=== PATIENT | female | born 1965 | race Caucasian/White ===

== ENCOUNTER 2017-07-07 14:21 | Emergency (ER) | payer MEDICARE, MEDICAID ==
[~2017-07-07] VITALS: Ht 160 cm; Wt 106.0 kg
[2017-07-07] MEDS ORDERED: CYCL-1 PO (16:19)
[2017-07-07] MEDS ORDERED: IBUP-1984 PO (16:19)
[2017-07-07 16:33] VITALS: BP 117/78
== END 2017-07-07 16:34 | disposition home or self-care (01) ==
LOC: ER 14:22
DX: S16.1XXA Strain of muscle, fascia and tendon at neck level, initial encounter (principal); G44.209 Tension-type headache, unspecified, not intractable; M62.830 Muscle spasm of back; I10 Essential (primary) hypertension; F12.10 Cannabis abuse, uncomplicated; Z88.5 Allergy status to narcotic agent; Z79.899 Other long term (current) drug therapy; X58.XXXA Exposure to other specified factors, initial encounter; Y93.I9 Activity, other involving external motion; Y92.89 Other specified places as the place of occurrence of the external cause; Y99.8 Other external cause status
CPT/HCPCS: 99283; A6258; A6449; L0172

== ENCOUNTER → 2020-10-16 | Day surgery (SDC) | payer MEDICARE, MEDICAID ==
[2020-10-10 15:13] LABS: BASOPHILS % (AUTO) 0.5 % (0-1); EOSINOPHILS # (AUTO) 0.1 X10'3 (0-0.9); EOSINOPHILS % (AUTO) 1.2 % (0-6); LYMPHOCYTES # (AUTO) 2.8 X10'3 (1.1-4.8); LYMPHOCYTES % (AUTO) 29.5 % (21-51); MEAN CORPUSCULAR HEMOGLOBIN 29.2 PG (27.0-31.0); MEAN CORPUSCULAR VOLUME 88.4 FL (78-98); MEAN PLATELET VOLUME 7.8 FL (7.4-10.4); MONOCYTES # (AUTO) 0.5 X10'3 (0-0.9); MONOCYTES % (AUTO) 5.5 % (2-12); NEUTROPHILS # (AUTO) 6.1 X10'3 (1.8-7.7); NEUTROPHILS % (AUTO) 63.3 % (42-75); PRE OP HEMATOCRIT 42.5 % (35.0-45.0); PRE OP PLATELET COUNT 335 X10'3 (140-440); RED CELL DISTRIBUTION WIDTH 14.7 % (11.5-14.5)
[2020-10-10 15:23] LABS: ALBUMIN 3.5 G/DL (3.4-5.0); ALBUMIN/GLOBULIN RATIO 0.8 (1.1-1.5); ALKALINE PHOSPHATASE 90 IU/L (46-116); BLOOD UREA NITROGEN 13 MG/DL (7-18); BUN/CREATININE RATIO 17.1 (6.6-38.0); CHLORIDE 104 MMOL/L (99-107); CREATININE 0.76 MG/DL (0.40-0.90); PRE OP ALT 19 U/L (30-65); PRE OP ANION GAP 8 (8-16); PRE OP AST 15 U/L (10-37); PRE OP BILIRUB, TOTAL 0.3 MG/DL (0.0-1.0); PRE OP GLUCOSE 91 MG/DL (70-104); PRE OP SODIUM 143 MMOL/L (135-145); TOTAL CARBON DIOXIDE 31.3 MMOL/L (24-32); eGFR 79 ML/MIN
[2020-10-10 15:27] LABS: PRE OP POTASSIUM 3.2 MMOL/L (3.4-5.1)
[~2020-10-16] VITALS: Ht 160 cm; Wt 113.4 kg
[2020-10-16] VITALS (13 sets, daily range): BP systolic 88–144; BP diastolic 53–96
[~2020-10-16] MED LIST: ACET-2389 PO; BUPIVAcaine/PF 2.5 mg/ml (0.25%) 30ml vial ONE; CETI10TA14 PO; CHLO25TA10 PO; GABA600T PO; GUAI600T45 PO; INDOCYANINE GREEN 25 MG/10 ML VIAL IV ONE; LIDOcaine 1% 30ml preserv. free vial ONE; LIDOcaine 2% (20mg/ml) 5ml vial ONE; ZOLP5TAB8 PO; albuterol 2.5 MG/3 ML nebule NEB ONE; ceFAZolin 1000mg inj ONE; cefazolin/dext.iso 2gm/100ml IV ONE; desflurane 240ml liquid inh. IH ONE; dexamethasone sod phosphate 4mg/ml inj. ONE; dexmedetomidin/NS 400mcg/100mL bag IV ONE; ePHEDrine 50MG/ML INJ. ONE; famotidine 20mg tablet PO ONE; fentaNYL/PF 50MCG/1 ML 2ML syringe IV PRN; fentaNYL/PF 50MCG/1 ML 2ML syringe ONE; glycopyrrolate 0.2mg/ml inj ONE; hydrALAZINE 20mg/ml inj. IV PRN; labetalol 20mg/4ml (5mg/ml) syringe IV PRN; morphine 2 MG/ML inj. syringe IV PRN; morphine 4 MG/ML inj SYRINge IV PRN; ondansetron/PF 4mg/2ml inj IV PRN; ondansetron/PF 4mg/2ml inj ONE; oxyCODONE/APAP 5-325mg tablet PO PRN; propofol inj 20 ML IV ONE; ringers solution, lacted 1,000 ML IV SCH; rocuronium 10mg/ml inj IV ONE; sevoflurane 250ml liquid IH ONE
[2020-10-16 10:00] LABS: ISTAT CREATININE 0.7 mg/dL (0.6-1.1); ISTAT HGB 15.3 g/dl (12.0-16.0); ISTAT IONIZED CALCIUM 1.15 mmol/L (1.03-1.32); ISTAT K 3.4 mmol/L (3.5-5.1); POC BUN/CREATININE RATIO 15.7 (6.6-38.0)
--- NOTE | 2020-10-16 11:51 | NUR ---
Received from OR via , accompanied by Anesthesiologist DR ANGELO and report given by Anesthesiolgist. PT PRESENTS WITH PIV 20G RIGHT HAND. VSS. Addendum: 10/16/20 at 1157 by Lizbeth Enriquez RN, RN Amended: Links added.
[2020-10-16] MEDS: fentaNYL/PF 50MCG/1 ML 2ML syringe IV PRN ×2 (12:10→12:18)
--- NOTE | 2020-10-16 13:31 | NUR ---
ALL DISCHARGE CRITERIA HAS BEEN MET. VSS, PAIN AT A TOLERABLE LEVEL, VOIDING AND ABLE TO SAFELY AMBULATE AND TRANSFER SELF. IV TAKEN OUT WITHOUT ANY COMPLICATIONS. ALL DISCHARGE INSTRUCTIONS COVERED WITH PATIENT AND ALL QUESTIONS ANSWERED. PATIENT TAKEN OUT VIA WHEELCHAIR TO PERSONAL VEHICLE WHERE FAMILY/FRIEND DROVE PATIENT HOME. PT IS MAD THAT WE ARE NOT KEEPING HER HERE IN THE HOSPITAL FOR OBSERVATIONS. DR JARRELL EXPPLAINED THAT WE HAVE NO REASON FOR KEEPING HER HERE AT THIS TIME. Addendum: 10/16/20 at 1355 by Lizbeth Enriquez RN, RN Amended: Links added.
--- NOTE | 2020-10-16 13:42 | NUR ---
PT IS BEING VERD DIFFICILT AND ANGRY AND TO WHY WE ARE SENDING HER HOME. DR JARRELL AT BEDSIDE TLAKING WITH PT AND EXPLAINING THAT THERE IS NO REASON TO KEEP PT IN THE NOSPITAL AT THIS TIME. Addendum: 10/16/20 at 1355 by Lizbeth Enriquez RN, RN Amended: Links added.
== END | disposition home or self-care (01) ==
LOC: PAS 08:27
PROVIDERS: ATTEND Surgery
DX: K80.10 Calculus of gallbladder with chronic cholecystitis without obstruction (principal); Z20.822 Contact with and (suspected) exposure to COVID-19; F31.9 Bipolar disorder, unspecified; F41.9 Anxiety disorder, unspecified; I10 Essential (primary) hypertension; G47.30 Sleep apnea, unspecified; E66.01 Morbid (severe) obesity due to excess calories; Z68.42 Body mass index [BMI] 45.0-49.9, adult; F43.10 Post-traumatic stress disorder, unspecified; G89.29 Other chronic pain; F12.10 Cannabis abuse, uncomplicated; Z88.8 Allergy status to other drugs, medicaments and biological substances; Z88.5 Allergy status to narcotic agent; Z91.09 Other allergy status, other than to drugs and biological substances; Z90.49 Acquired absence of other specified parts of digestive tract; Z98.890 Other specified postprocedural states; Z79.899 Other long term (current) drug therapy
CPT/HCPCS: 36415; 47563; 71046; 80047; 80053; 82948; 85025; 93005; J0690; J1100; J2001; J2405; J2704; J3010; J3490; J7120; U0003; U0005; A4215; A4618; A7000

== ENCOUNTER 2022-05-09 10:54 | Day surgery (SDC) | payer MEDICARE, MEDICAID ==
[~2022-05-09] VITALS: Ht 160 cm; Wt 114.2 kg
[~2022-05-09 10:54] MED LIST changes: -BUPIVAcaine/PF 2.5 mg/ml (0.25%) 30ml vial ONE; -INDOCYANINE GREEN 25 MG/10 ML VIAL IV ONE; -LIDOcaine 1% 30ml preserv. free vial ONE; -LIDOcaine 2% (20mg/ml) 5ml vial ONE; -albuterol 2.5 MG/3 ML nebule NEB ONE; -ceFAZolin 1000mg inj ONE; -cefazolin/dext.iso 2gm/100ml IV ONE; -desflurane 240ml liquid inh. IH ONE; -dexamethasone sod phosphate 4mg/ml inj. ONE; -dexmedetomidin/NS 400mcg/100mL bag IV ONE; -ePHEDrine 50MG/ML INJ. ONE; -famotidine 20mg tablet PO ONE; -fentaNYL/PF 50MCG/1 ML 2ML syringe IV PRN; -fentaNYL/PF 50MCG/1 ML 2ML syringe ONE; -glycopyrrolate 0.2mg/ml inj ONE; -hydrALAZINE 20mg/ml inj. IV PRN; -labetalol 20mg/4ml (5mg/ml) syringe IV PRN; -morphine 2 MG/ML inj. syringe IV PRN; -morphine 4 MG/ML inj SYRINge IV PRN; -ondansetron/PF 4mg/2ml inj IV PRN; -ondansetron/PF 4mg/2ml inj ONE; -oxyCODONE/APAP 5-325mg tablet PO PRN; -propofol inj 20 ML IV ONE; -ringers solution, lacted 1,000 ML IV SCH; -rocuronium 10mg/ml inj IV ONE; -sevoflurane 250ml liquid IH ONE
[2022-05-09] MEDS ORDERED: normal saline 1000ml 1,000 ML IV PRN (11:15)
[2022-05-09 11:28] VITALS: BP 139/81
[2022-05-09] MEDS ORDERED: normal saline 1000ml 1,000 ML IV SCH (11:35)
[2022-05-09] MEDS ORDERED: LIDOcaine 1% 30ml preserv. free vial SQ STA (11:37)
[2022-05-09] MEDS ORDERED: DICL25TA10 PO (11:43)
[2022-05-09] MEDS ORDERED: FLUT16SP2 BOTHNARES (11:43)
[2022-05-09] MEDS ORDERED: GABA600T13 PO (11:43)
[2022-05-09] MEDS ORDERED: IBUP-2697 PO (11:43)
[2022-05-09 11:52] VITALS: BP 136/105
[2022-05-09 12:00] VITALS: BP 146/100
[2022-05-09 12:15] VITALS: BP 137/101
[2022-05-09 12:45] VITALS: BP 136/105
== END 2022-05-09 13:00 | disposition home or self-care (01) ==
LOC: SSTAY O 10:54
PROVIDERS: ATTEND Radiology Diagnostic Radiology
DX: R59.0 Localized enlarged lymph nodes (principal); C83.31 Diffuse large B-cell lymphoma, lymph nodes of head, face, and neck; F32.9 Major depressive disorder, single episode, unspecified; J45.909 Unspecified asthma, uncomplicated; I10 Essential (primary) hypertension; Z88.5 Allergy status to narcotic agent; Z88.8 Allergy status to other drugs, medicaments and biological substances; Z91.09 Other allergy status, other than to drugs and biological substances; Z79.899 Other long term (current) drug therapy
CPT/HCPCS: 10005; 38505; 76942; 88173; 88184; 88185; 88305; 88341; 88342; 88360; J7030

== ENCOUNTER → 2023-10-12 | Outpatient (CLI) | payer MEDICARE, MEDICAID ==
[~2023-10-12] MED LIST changes: -CETI10TA14 PO; +DICL25TA10 PO; +FLUT16SP2 BOTHNARES; -GABA600T PO; +GABA600T13 PO; -GUAI600T45 PO; +IBUP-2697 PO
== END | disposition home or self-care (01) ==
LOC: RAD 11:33
PROVIDERS: ATTEND Student in an Organized Health Care Education/Training Program
DX: M48.07 Spinal stenosis, lumbosacral region (principal); M43.16 Spondylolisthesis, lumbar region; M47.812 Spondylosis without myelopathy or radiculopathy, cervical region; M48.02 Spinal stenosis, cervical region; R19.5 Other fecal abnormalities; R20.0 Anesthesia of skin
CPT/HCPCS: 72040; 72100

== ENCOUNTER 2024-03-03 10:49 | Emergency (ER) | payer MEDICARE, MEDICAID ==
[~2024-03-03] VITALS: Ht 157.5 cm; Wt 115.4 kg
[~2024-03-03 10:49] MED LIST changes: +GABA-1405 PO; -GABA600T13 PO
[2024-03-03] MEDS ORDERED: iohexol 350MG/ML 100ml bottle IV ONE ×2 (10:55→11:05)
[2024-03-03 11:07] LABS: BASOPHILS # (AUTO) 0.1 X10'3 (0-0.2); BASOPHILS % (AUTO) 0.6 % (0-1); EOSINOPHILS # (AUTO) 0.1 X10'3 (0-0.9); EOSINOPHILS % (AUTO) 1.4 % (0-6); HEMATOCRIT 43.3 % (35.0-45.0); HEMOGLOBIN 14.3 g/dl (12.0-16.0); LYMPHOCYTES # (AUTO) 2.5 X10'3 (1.1-4.8); LYMPHOCYTES % (AUTO) 30.8 % (21-51); MEAN CORPUSCULAR HEMOGLOBIN 29.6 PG (27.0-31.0); MEAN CORPUSCULAR HGB CONC 33.1 g/dL (33.0-36.5); MEAN CORPUSCULAR VOLUME 89.6 FL (78-98); MEAN PLATELET VOLUME 7.6 FL (7.4-10.4); MONOCYTES # (AUTO) 0.6 X10'3 (0-0.9); MONOCYTES % (AUTO) 6.9 % (2-12); NEUTROPHILS % (AUTO) 60.3 % (42-75); PLATELET COUNT 307 X10'3 (140-440); RED BLOOD COUNT 4.83 X10'6 (4.20-5.60); RED CELL DISTRIBUTION WIDTH 15.2 % (11.5-14.5); WHITE BLOOD COUNT 8.3 X10'3 (4.5-11.0)
[2024-03-03 11:16] LABS: APTT 26 SECONDS (22-32); PROTHROMBIN TIME 10.9 SECONDS (9.0-12.0)
[2024-03-03 11:21] LABS: ALBUMIN 3.7 G/DL (3.4-5.0); ANION GAP 10 (8-16); BLOOD UREA NITROGEN 9 MG/DL (7-18); CALCIUM 8.9 MG/DL (8.5-10.1); CHLORIDE 104 MMOL/L (99-107); CREATININE 0.75 MG/DL (0.40-0.90); GLUCOSE 113 MG/DL (70-104); POTASSIUM 3.6 MMOL/L (3.5-5.1); SODIUM 140 MMOL/L (135-145); TOTAL CARBON DIOXIDE 25.9 MMOL/L (24-32); eCRCL 64 ML/MIN; eGFR 79 ML/MIN
[2024-03-03] MEDS: dexamethasone sod phosphate 10mg/ml inj IM STA (11:25)
[2024-03-03 12:12] LABS: BILIRUBIN,URINE NEGATIVE (Neg); CLARITY,URINE CLEAR (Clear); COLOR,URINE YELLOW (Yellow); GLUCOSE, URINE NEGATIVE (Neg); KETONES,URINE 40 mg/dl (Neg); LEUKOCYTE ESTERASE ,URINE NEGATIVE (Neg); NITRITES, URINE NEGATIVE (Neg); OCCULT BLOOD,URINE NEGATIVE (Neg); PROTEIN,URINE NEGATIVE (Neg); UROBILINOGEN,URINE 0.2 E.U/dL (0.2-1.0)
[2024-03-03 12:22] LABS: UA COLLECTION TYPE STRAIGHT CATH
[2024-03-03] MEDS: morphine 4 MG/ML inj SYRINge IV ONE (12:53)
[2024-03-03] MEDS: levetiracetam-NACL1000mg/100ml 100 ML IV SCH (12:53)
[2024-03-03] MEDS: LORazepam 2 mg/ml vial IV ONE ×2 (12:53→14:47)
[2024-03-03] MEDS: ondansetron/PF 4mg/2ml inj IV ONE ×3 (13:53→20:12)
[2024-03-03] MEDS: LORazepam 2 mg/ml vial ONE (14:48)
[2024-03-03] MEDS ORDERED: levetiracetam-NACL1000mg/100ml 100 ML IV SCH (20:00)
[2024-03-03] MEDS ORDERED: levetiracetam inj 500 MG in normal saline 100ml IV soln 100 ML IV SCH (20:00)
[2024-03-03] MEDS: acetaminophen 1,000mg/100ml IV 100 ML IV ONE (20:03)
[2024-03-03] MEDS: haloperidol lactate 5mg/ml inj IM ONE (20:35)
[2024-03-04] MEDS ORDERED: dexamethasone 4mg/ml inj IV SCH
[2024-03-04] MEDS: gabapentin 300mg capsule PO SCH (07:15)
[2024-03-04] MEDS: haloperidol lactate 5mg/ml inj IM ONE ×2 (07:17→21:49)
[2024-03-04] MEDS: diphenhydrAMINE 50 mg/ml inj IV ONE ×2 (07:22→21:47)
[2024-03-05] MEDS: oxyCODONE/APAP 5-325mg tablet PO ONE (11:22)
[2024-03-05 14:01] VITALS: BP 138/85; PULSE 78; RESP 18; TEMP 98.1; O2SAT 93
== END 2024-03-05 16:24 | disposition short-term general hospital (02) ==
LOC: ER 10:50
DX: R22.0 Localized swelling, mass and lump, head (principal); I10 Essential (primary) hypertension; F32.A Depression, unspecified; F41.9 Anxiety disorder, unspecified; Z88.6 Allergy status to analgesic agent; Z91.048 Other nonmedicinal substance allergy status; Z79.52 Long term (current) use of systemic steroids; Z79.899 Other long term (current) drug therapy; Z98.890 Other specified postprocedural states; Z72.89 Other problems related to lifestyle
CPT/HCPCS: 36415; 70450; 70496; 70498; 71045; 80048; 81003; 84484; 85025; 85610; 85730; 93005; 96365; 96366; 96367; 96372; 96375; 96376; 99291; A4615; C1758; J0131; J1100; J1200; J1630; J1953; J2060; J2270; J2405; Q9967

== ENCOUNTER 2024-07-28 12:07 | Outpatient (CLI) | payer MEDICARE, MEDICAID ==
[2024-07-28] MEDS ORDERED: GADOTERATE MEGLUMINE 7.5 MMOL/15 ML VIAL IV ONE (21:12)
== END 2024-07-28 23:59 | disposition home or self-care (01) ==
LOC: MRI 12:07
PROVIDERS: ATTEND Internal Medicine
DX: C83.390 Primary central nervous system lymphoma (principal)
CPT/HCPCS: 70553; A9575

== ENCOUNTER 2024-09-14 08:28 | Outpatient (CLI) | payer MEDICARE, MEDICAID ==
[2024-09-14] MEDS ORDERED: GADOTERATE MEGLUMINE 7.5 MMOL/15 ML VIAL IV ONE (10:16)
--- NOTE | 2024-09-14 10:31 | RADIOLOGY REPORT ---
MRI BRAIN WITH CONTRAST CLINICAL HISTORY: PRIMARY CENTRAL NERVOUS SYSTEM LYMPHOMA TECHNIQUE: Multiplanar multisequence images of the brain were obtained prior to and following intravenous admini stration of contrast. 20cc of Clariscan contrast from a prefilled syringe was administered intravenou sly. Comparison: MR MRI HEAD on DOS: 07/28/24, MR MRI HEAD on DOS: 03/04/24 FINDINGS: There is stable appearance postsurgical changes with small left parietal craniotomy and post resectio n changes in the left parietal lobe. There is no discrete mass or pathologic enhancement at the surgi lexis site. There are fairly stable confluent surrounding hyperintense T2/FLAIR signal changes. There i s no evidence of acute hemorrhage. There is no mass effect. There is no restricted diffusion. There is no new enhancing brain lesion. There is no hydrocephalus or extra-axial fluid collection. The visualized intracranial vasculature demonstrates appropriate fl ow-voids. The midline structures appear unremarkable. The craniocervical junction is within normal li mits. The calvarium demonstrates normal marrow signal. There are retention cysts in the right maxilla ry sinus. The mastoid air cells are clear. IMPRESSION: 1. Stable appearance of postsurgical changes with resection cavity in the left parietal lobe. There i s no discrete mass or pathologic enhancement at the surgical site to suggest residual or recurrent tu mor. 2. Stable confluent hyperintense T2/FLAIR signal changes surrounding the resection cavity. HS:Y
== END 2024-09-14 23:59 | disposition home or self-care (01) ==
LOC: MRI 08:28
PROVIDERS: ATTEND Internal Medicine
DX: C83.390 Primary central nervous system lymphoma (principal); J32.0 Chronic maxillary sinusitis; G93.0 Cerebral cysts
CPT/HCPCS: 70553; A9575

== ENCOUNTER → 2024-09-22 | Outpatient (CLI) | payer MEDICARE, MEDICAID ==
[~2024-09-22] MED LIST changes: +iohexol 300mg/ml 100ml inj. ONE
--- NOTE | 2024-09-22 10:18 | RADIOLOGY REPORT ---
Exam: CT CT ABDOMEN PELVIS W/ IV CONTRAST History: LOWER ABDOMINAL PAIN, UNSPECIFIED TECHNIQUE: Multiple contiguous axial CT images of the abdomen and pelvis were obtained with intraveno us contrast. The images were reformatted to generate coronal and sagittal reconstructions. 100 cc of Omnipaque 350 contrast was injected intravenously. All CT scans at this medical facility are performed using dose modulation techniques as appropriate t o a performed exam including the following:Automated exposure control was utilized; adjustment of the MA and/or KV according to patient size; and use of iterative reconstruction technique. Radiation Dose Information: CT Dose: CTDI volume is 36 mGy. Dose-length product is 1899 mGy*cm Comparison: None FINDINGS: There is a small wedge defect in the midpole of the left kidney which May relate to postsurgical armendariz ges.. There is no discrete renal lesion. There is no evidence of nephrolithiasis or hydronephrosis. Gallbladder is surgically absent. The liver, pancreas, adrenal glands, and spleen appear within nor mal limits. There is no evidence of abdominal lymphadenopathy. There is no free fluid or free air. The stomach grossly appears unremarkable. The small and large bowel loops demonstrate normal caliber and distribution. A normal appearing appendix is seen in the right lower quadrant abdomen. There are scattered diverticula in the distal colon without evidence of acute diverticulitis. The abdominal aorta and IVC appear within normal limits. The bladder appears within normal limits the degree of distention. Pelvic organ is unremarkable. Ther e is no evidence of a pelvic mass or lymphadenopathy. There is no free fluid collection. Lung bases are clear. There are multilevel degenerative changes in the lower lumbar spine. There is a nonspecific 2.4 x 2.5 cm hypodense collection with thin enhancing agrawal in the periumbilic al subcutaneous tissues. There is also a fat containing infraumbilical ventral hernia. IMPRESSION: 1. Nonspecific 2.4 x 2.5 cm hypodense collection with thin enhancing agrawal in the periumbilical subcu taneous tissues. This may represent a small seroma. Small abscess is not entirely excluded. Clinical correlation is recommended. 2. Small wedge defect in the midpole left kidney May relate to postsurgical changes. 3. Distal colon diverticulosis without evidence of acute diverticulitis. 4. Fat containing infraumbilical ventral abdominal wall hernia. HS:Y
== END | disposition home or self-care (01) ==
LOC: RAD 09:21
PROVIDERS: ATTEND Family Medicine
DX: K57.30 Diverticulosis of large intestine without perforation or abscess without bleeding (principal); R10.30 Lower abdominal pain, unspecified; Z90.49 Acquired absence of other specified parts of digestive tract; K42.9 Umbilical hernia without obstruction or gangrene; I62.00 Nontraumatic subdural hemorrhage, unspecified; K57.20 Diverticulitis of large intestine with perforation and abscess without bleeding
CPT/HCPCS: 74177; Q9967